=== PATIENT | female | born 1990 | race Caucasian/White ===

== ENCOUNTER 2025-02-06 12:02 | Emergency (ER) | payer MEDICAID ==
[~2025-02-06] VITALS: Ht 160 cm; Wt 52.2 kg
[2025-02-06] MEDS ORDERED: ACET-2605 PO (14:59)
[2025-02-06] MEDS ORDERED: ACETAMINOPHEN 325 MG TABLET ONE (15:01)
[2025-02-06] MEDS: ACETAMINOPHEN 325 MG TABLET PO ONE (15:02)
[2025-02-06 15:55] LABS: APPEARANCE,URINE SLIGHTLY CLOUDY (CLEAR); BLOOD, URINE 2+ Ery/uL (NEGATIVE); LEUKOCYTE ESTERASE ,URINE 2+ (NEGATIVE); NITRITE, URINE POSITIVE (NEGATIVE); UGLUCOSE NEGATIVE (NEGATIVE)
[2025-02-06 15:59] LABS: PREGNANCY TEST URINE QUAL NEGATIVE (NEGATIVE)
[2025-02-06 16:16] LABS: ADD URINE CULTURE YES
[2025-02-06 16:19] VITALS: BP 119/69; TEMP 98.8; O2SAT 98
== END 2025-02-06 16:20 | disposition home or self-care (01) ==
LOC: ER 12:30
DX: S30.0XXA Contusion of lower back and pelvis, initial encounter (principal); R10.20 Pelvic and perineal pain unspecified side; Z88.6 Allergy status to analgesic agent; V00.131A Fall from skateboard, initial encounter; Y93.89 Activity, other specified; Y92.89 Other specified places as the place of occurrence of the external cause; Y99.8 Other external cause status
CPT/HCPCS: 71045-TC; 72100-TC; 81001; 84703-TC; 87086-TC; 87186-TC